=== PATIENT | male | born 1970 | race Caucasian/White ===

== ENCOUNTER 2020-04-28 12:09 | Emergency (ER) | payer SELFPAY ==
--- NOTE | 2020-04-28 12:30 | ER Document Report ---
ED Medical Screen (RME) - General Chief Complaint: Chest Pain Stated Complaint: CHEST PAIN Time Seen by Provider: 04/28/20 12:26 Mode of Arrival: Ambulatory Information source: Patient Notes: Patient presents complaining of chest pain he describes as a tightness that started yesterday with shortness of breath. Patient reports occasional confusion. Patient presently awake alert and oriented. Patient denies any significant past medical history. Patient does report having a heart cath last year without any acute findings. I have greeted and performed a rapid initial assessment of this patient. A comprehensive ED assessment and evaluation of the patient, analysis of test results and completion of the medical decision making process will be conducted by additional ED providers. - Related Data Allergies/Adverse Reactions: No Known Allergies Allergy (Verified 04/28/20 12:26) Physical Exam - Vital signs Vitals: Temp Pulse Resp BP Pulse Ox 98.7 F 74 16 132/94 H 100 04/28/20 12:20 04/28/20 12:20 04/28/20 12:04/28/20 12:04/28/20 12:20 - Respiratory Respiratory status: No respiratory distress Chest status: Nontender Breath sounds: Normal - Cardiovascular Rhythm: Regular Heart sounds: S1 appreciated, S2 appreciated Course - Vital Signs Vital signs: Temp Pulse Resp BP Pulse Ox 98.7 F 74 16 132/94 H 100 04/28/20 12:20 04/28/20 12:20 04/28/20 12:20 04/28/20 12:20 04/28/20 12:20
--- NOTE | 2020-04-28 12:47 | RADIOLOGY REPORT (SQ) ---
EXAM DESCRIPTION: CHEST SINGLE VIEW IMAGES COMPLETED DATE/TIME: 04/28/2020 12:38 pm REASON FOR STUDY: cp, sob COMPARISON: None. EXAM PARAMETERS: NUMBER OF VIEWS: One view. TECHNIQUE: Single frontal radiographic view of the chest acquired. RADIATION DOSE: NA LIMITATIONS: None. FINDINGS: LUNGS AND PLEURA: No opacities, masses or pneumothorax. No pleural effusion. MEDIASTINUM AND HILAR STRUCTURES: No masses. Contour normal. HEART AND VASCULAR STRUCTURES: Heart normal in size. Normal vasculature. BONES: No acute findings. HARDWARE: None in the chest. OTHER: No other significant finding. IMPRESSION: 1. NO ACUTE RADIOGRAPHIC FINDING IN THE CHEST. TECHNICAL DOCUMENTATION: JOB ID: [id number] [employer]- All Rights Reserved Reading location - IP/workstation name: [email or web address]
[2020-04-28 13:07] LABS: ABSOLUTE BASOPHILS # (AUTO) 0.1 10^3/uL (0.0-0.2); ABSOLUTE EOSINOPHILS # (AUTO) 0.7 10^3/uL (0.0-0.6); ABSOLUTE LYMPHOCYTES (AUTO) 2.2 10^3/uL (0.5-4.7); ABSOLUTE MONOCYTES (AUTO) 0.7 10^3/uL (0.1-1.4); ABSOLUTE NEUT (AUTO) 3.2 10^3/uL (1.7-8.2); BASOPHILS % (AUTO) 1.2 % (0-2); EOSINOPHILS % (AUTO) 10.5 % (0-6); HEMATOCRIT 44.5 % (37.9-51.0); HEMOGLOBIN 15.5 g/dL (13.5-17.0); LYMPHOCYTES % (AUTO) 31.5 % (13-45); MEAN CORPUSCULAR HEMOGLOBIN 32.6 pg (27.0-33.4); MEAN CORPUSCULAR VOLUME 93 fl (80-97); MONOCYTES % (AUTO) 9.8 % (3-13); PLATELET COUNT 234 10^3/uL (150-450); RED BLOOD COUNT 4.77 10^6/uL (4.35-5.55); RED CELL DISTRIBUTION WIDTH 13.3 % (11.5-14.0); TOTAL CELLS COUNTED % (AUTO) 100 %; WHITE BLOOD COUNT 6.9 10^3/uL (4.0-10.5)
--- NOTE | 2020-04-28 13:28 | ER Document Report ---
ED General - General Chief Complaint: Chest Tightness Stated Complaint: CHEST PAIN Time Seen by Provider: 04/28/20 12:26 Primary Care Provider: [facility] [Provider Group] - Follow up as needed Mode of Arrival: Ambulatory Information source: Patient Notes: Patient is a 49-year-old male presenting to the emergency room with concern for shortness of breath. Patient reports shortness of breath began yesterday while at work. Patient reports associated chest tightness, confusion, nonproductive cough, and anxiety. Patient reports he attempted to go to work this morning, however he became confused while at work, leading to his presentation in the emergency department. Patient reports confusion as "being in a fog". Patient reports chest tightness is only present in context with shortness of breath. Reports shortness of breath is worsened with exertion, position changes, or bending forward. Patient reports long history of sleeping propped up on pillows, however, reports this is due to symptoms of reflux is not related to new symptom of shortness of breath. Patient denies fever, nausea, vomiting, diarrhea, abdominal pain, or urinary concerns. Patient denies recent travel and personal or familial history of blood clots. Patient reports that he does not have a primary care provider. Reports only medical history includes a heart catheterization 17 to 18 years ago, with no abnormal findings. Patient reports smoking half a pack per day and smoking marijuana every other day. Patient reports that he did smoke cigarettes yesterday, that he did not smoke cigarettes today, and that shortness of breath seems mildly improved from yesterday. - Related Data Allergies/Adverse Reactions: No Known Allergies Allergy (Verified 04/28/20 12:26) Home Medications: naprosyn Past Medical History - General Information source: Patient - Social History Smoking Status: Current Every Day Smoker Cigarette use (# per day): Yes - 1/2 ppd Chew tobacco use (# tins/day): No Frequency of alcohol use: Occasional Drug Abuse: Marijuana Family History: CAD - Mother Patient has suicidal ideation: No Patient has homicidal ideation: No Past Surgical History: Reports: Hx Cardiac Catheterization - "17-18 years ago" Review of Systems - Review of Systems Constitutional: No symptoms reported EENT: Nose congestion Cardiovascular: Chest pain - pressure with sob Respiratory: Cough, Short of breath Gastrointestinal: No symptoms reported Genitourinary: No symptoms reported Male Genitourinary: No symptoms reported Musculoskeletal: No symptoms reported Skin: No symptoms reported Hematologic/Lymphatic: No symptoms reported Neurological/Psychological: No symptoms reported Physical Exam - Vital signs Vitals: Temp Pulse Resp BP Pulse Ox 98.7 F 74 16 132/94 H 100 04/28/20 12:20 04/28/20 12:20 04/28/20 12:20 04/28/20 12:20 04/28/20 12:20 - Notes Notes: PHYSICAL EXAMINATION: GENERAL: Well-appearing, well-nourished and in no acute distress. HEAD: Atraumatic, normocephalic. EYES: Pupils equal round and reactive to light, extraocular movements intact, sclera anicteric, conjunctiva are normal. ENT: Nares patent, oropharynx clear without exudates. Moist mucous membranes. NECK: Normal range of motion, supple without lymphadenopathy LUNGS: Breath sounds clear to auscultation bilaterally and equal. No wheezes rales or rhonchi. HEART: Regular rate and rhythm without murmurs ABDOMEN: Soft, nontender, nondistended abdomen. No guarding, no rebound. No masses appreciated. Musculoskeletal: Normal range of motion, no pitting or edema. No cyanosis. NEUROLOGICAL: Cranial nerves grossly intact. Normal speech, normal gait. N ormal sensory, motor exams PSYCH: Normal mood, normal affect. SKIN: Warm, Dry, normal turgor, no rashes or lesions noted. Course - Re-evaluation Re-evalutation: 04/28/20 14:10 Patient initially seen in triage, seen by another provider with cardiac work-up being initiated. Cardiac work-up negative. Patient is PERC negative. Patient now reports that 1 week ago he was at a bar, unmasked, with a large amount of people. Patient reports that he is concerned that he has contracted COVID-19 and would like to be tested. Discussed discharge plan with patient to include self quarantining until COVID-19 results have been discussed with patient and medication management for symptom control. Patient in agreement with this plan. - Vital Signs Vital signs: Temp Pulse Resp BP Pulse Ox 97.8 F 74 16 132/94 H 100 04/28/20 12:26 04/28/20 12:20 04/28/20 12:20 04/28/20 12:20 04/28/20 12:54 - Laboratory Result Diagrams: 04/28/20 12:50 04/28/20 12:50 Laboratory results interpreted by me: 04/28/20 12:50 Eos % (Auto) 10.5 H Absolute Eos (auto) 0.7 H - Diagnostic Test Radiology reviewed: Image reviewed, Reports reviewed - EKG Interpretation by Me EKG shows normal: Sinus rhythm - Rate 65, QTc 433, left axis deviation noted, no ST segment elevations or depressions to suggest ischemia. Discharge - Discharge Clinical Impression: Shortness of breath, Encounter for laboratory testing for COVID-19 virus Condition: Stable Disposition: HOME, SELF-CARE Instructions: COVID-19 Guidance for Persons Under Investigation Additional Instructions: The COVID-19 test is pending. Please self quarantine until you have received results. If you were prescribed medications during today's visit please take them exactly as prescribed. Push fluids. Get plenty of rest. Tylenol or Motrin for fever and body aches. Good handwashing and stay away from others. Return to the emergency department with any new or worsening symptoms such as difficulty breathing, or any other worsening symptoms. Prescriptions: Prednisone [Deltasone 20 mg Tablet] 3 tab PO DAILY 5 Days #15 tablet Albuterol Sulfate [Proair HFA Inhalation Aerosol 8.5 gm MDI] 2 puff IH Q4H PRN #1 mdi PRN Reason: Forms: Return to Work Referrals: [facility] [Provider Group] - Follow up as needed
[2020-04-28 13:29] LABS: ALBUMIN 4.4 g/dL (3.5-5.0); ALKALINE PHOSPHATASE 79 U/L (38-126); ANION GAP 8 (5-19); ASPARTATE AMINO TRANSFERASE 22 U/L (17-59); BILIRUBIN,DIRECT 0.3 mg/dL (0.0-0.4); BILIRUBIN,TOTAL 0.5 mg/dL (0.2-1.3); BLOOD UREA NITROGEN 15 mg/dL (7-20); CALCIUM 9.3 mg/dL (8.4-10.2); CARBON DIOXIDE 28 mmol/L (22-30); CHLORIDE 105 mmol/L (98-107); GLUCOSE 98 mg/dL (75-110); POTASSIUM 3.9 mmol/L (3.6-5.0); TOTAL PROTEIN 7.2 g/dL (6.3-8.2)
[2020-04-28 13:39] LABS: NT PRO BNP 52 pg/mL (<125)
[2020-04-28 13:44] LABS: TROPONIN I < 0.012 ng/mL
[2020-04-28 16:53] VITALS: BP 128/88
--- NOTE | 2020-04-28 18:11 | EKG REPORT ---
SEVERITY:- OTHERWISE NORMAL ECG - SINUS RHYTHM LEFT AXIS DEVIATION : Confirmed by: Loi Menjivar MD 28-Apr-2020 18:10:18
== END 2020-04-28 15:01 | disposition home or self-care (01) ==
LOC: ER 12:09
DX: R06.02 Shortness of breath (principal); R07.9 Chest pain, unspecified; R41.0 Disorientation, unspecified; R05 Cough; F41.9 Anxiety disorder, unspecified; Z20.828 Contact with and (suspected) exposure to other viral communicable diseases; F17.210 Nicotine dependence, cigarettes, uncomplicated; Z79.899 Other long term (current) drug therapy
CPT/HCPCS: 93005; 99285; 36415; 85025; 87635; 80053; 84484; 83880; 71045; 93010; C9803